=== PATIENT | male | born 1955 | race Caucasian/White ===

== ENCOUNTER → 2017-10-16 | Outpatient (CLI) | payer BC | END | disposition home or self-care (01) | LOC: LABPAT 12:54 | PROVIDERS: ATTEND Orthopaedic Surgery | DX: Z01.812 Encounter for preprocedural laboratory examination (principal) | CPT/HCPCS: 87070 ==

== ENCOUNTER → 2017-10-19 | Outpatient (CLI) | payer BC ==
[2017-10-19 11:35] LABS: HCT 49.3 % (39.0-53.0); HGB 17.2 gm/dL (13.0-17.5); MCH 32.7 pg (25.0-35.0); MCHC 34.9 g/dL (31.0-37.0); MCV 93.6 fL (80.0-100.0); Mean Platelet Volume 7.7; Platelet Count 268 k/uL (150-450); RBC 5.27 m/uL (4.30-5.90); RDW 13.2 % (11.5-15.5)
[2017-10-19 11:38] LABS: Partial Thromboplastin Time 24.7 sec (22.0-30.0); Prothrombin Time 9.8 sec (9.0-12.0)
[2017-10-19 11:39] LABS: ALT 30 U/L (21-72); AST 25 U/L (17-59); Albumin 4.6 g/dL (3.5-5.0); Alkaline Phosphatase 85 U/L (38-126); Anion Gap 8 mmol/L; Blood Urea Nitrogen 11 mg/dL (9-20); Calcium 9.7 mg/dL (8.4-10.2); Carbon Dioxide 24 mmol/L (22-30); Chloride 107 mmol/L (98-107); Glucose 89 mg/dL (74-99); Potassium 4.7 mmol/L (3.5-5.1); Sodium 139 mmol/L (137-145); Total Bilirubin 0.9 mg/dL (0.2-1.3); Total Protein 7.4 g/dL (6.3-8.2)
[2017-10-19 11:40] LABS: Appearance,Urine Clear (Clear); Bilirubin,Urine Negative (Negative); Blood,Urine Negative (Negative); Color,Urine Light Yellow; Glucose,Urine (UA) Negative (Negative); Ketones,Urine Negative (Negative); Leukocyte Esterase,Urine Negative (Negative); Nitrite,Urine Negative (Negative); Protein,Urine Negative (Negative); Specific Gravity,Urine 1.005 (1.001-1.035); Urobilinogen,Urine <2.0 mg/dL (<2.0)
== END | disposition home or self-care (01) ==
LOC: LABPAT 10:53
PROVIDERS: ATTEND Orthopaedic Surgery
DX: Z01.818 Encounter for other preprocedural examination (principal); Z01.812 Encounter for preprocedural laboratory examination
CPT/HCPCS: 36415; 80053; 81003; 85027; 85610; 85730; 93005

== ENCOUNTER 2017-10-30 07:54 | Inpatient (IN) | payer BC ==
[2017-10-19 09:33] VITALS: BMI 27.8
[~2017-10-30 07:54] MED LIST: ACETAMINOPHEN TAB 500 MG TAB PO ONE; DEXAMETHASONE SOD PHOSPHATE 10 MG/ML 1 ML VIAL IV ONE; HYDROmorphone 0.5 MG/0.5 ML SYRINGE IVP PRN; LACTATED RINGERS 1,000 ML IV SCH; LIDOCAINE 1% 20 ML VIAL (10MG/ML) FOR IV START INTRADERMA PRN; MELOXICAM 7.5 MG TAB PO ONE; MIDAZOLAM 2 MG/2 ML VIAL IV PRN; ONDANSETRON 4 MG/2 ML VIAL IVP ONE; SCOPOLAMINE 1.5MG/72HR PATCH TRANSDERM ONE; TRANEXAMIC ACID 1,000 MG in SODIUM CHLORIDE 0.9% 50 ML IVPB ONE; ceFAZolin IN SWFI 2 GM/20 ML SYRINGE IVP ONE
[2017-10-30] MEDS ORDERED: MAGNESIUM HYDROXIDE 2,400 MG/10 ML CUP PO PRN (12:23)
[2017-10-30] MEDS ORDERED: DIAZEPAM 5 MG TAB PO PRN ×2 (12:23)
[2017-10-30] MEDS ORDERED: hydrOXYzine PAMOATE 25 MG CAP PO PRN (12:23)
[2017-10-30] MEDS ORDERED: HYDROcodone/APAP 5-325MG 1 EACH TAB PO PRN (12:23)
[2017-10-30] MEDS ORDERED: ONDANSETRON 4 MG/2 ML VIAL IVP PRN (12:23)
[2017-10-30] MEDS ORDERED: HYDROmorphone 1 MG/ML 1 ML SYRINGE IVP PRN ×3 (12:23)
[2017-10-30] MEDS ORDERED: NALOXONE 0.4 MG/ML 1 ML VIAL IV PRN (12:23)
[2017-10-30] MEDS: ROPIVACAINE 246.25 MG, EPINEPHrine 0.5 MG, KETOROLAC 30 MG, cloNIDine HCL/PF 80 MCG, WA... MISCELLANE ONE ×10 (12:24→13:03)
[2017-10-30] MEDS ORDERED: PROPOFOL 10 MG/ML 20 ML VIAL IV ONE (12:25)
[2017-10-30] MEDS ORDERED: HEPARIN SODIUM,PORCINE 10,000 UNIT/ML 1 ML VIAL ONE (12:25)
[2017-10-30] MEDS ORDERED: TRANEXAMIC ACID 1,000 MG/10 ML VIAL ONE (12:25)
[2017-10-30] MEDS ORDERED: SODIUM CHLORIDE 0.9% IRRIG 1,000 ML BTL IRRIGATION ONE (12:25)
[2017-10-30] MEDS ORDERED: fentaNYL (PF) 50 MCG/ML 2 ML AMP ONE (12:25)
[2017-10-30] MEDS ORDERED: SODIUM CHLORIDE 0.9% 100 ML BAG ONE (12:25)
[2017-10-30] MEDS ORDERED: MIDAZOLAM 2 MG/2 ML VIAL ONE (12:25)
[2017-10-30] MEDS ORDERED: ceFAZolin 3,000 MG in SODIUM CHLORIDE 0.9% IRRIGATIO 3,000 ML IRRIGATION ONE (13:00)
[2017-10-30] MEDS ORDERED: LACTATED RINGERS 1,000 ML IV ONE (13:10)
--- NOTE | 2017-10-30 14:24 | FL ---
Fluoroscopy HISTORY: Hip arthroplasty 59 seconds fluoroscopy time supplied to the referring clinician. 3 intraoperative C-arm images docum ent the procedure. See dictated report from orthopedic surgery.
--- NOTE | 2017-10-30 14:32 | XR ---
EXAMINATION TYPE: XR Hip Limited RT DATE OF EXAM: 10/30/2017 CLINICAL HISTORY: Right hip replacement. Fluoroscopic documentation. TECHNIQUE: Fluoroscopy. COMPARISON: None. FINDINGS/IMPRESSION: Fluoroscopic guidance was provided during procedure performed by Dr. Hernandez. A total of 59 seconds of fluoroscopic time was utilized during the procedure and 3 spot images was a cquired.
--- NOTE | 2017-10-30 14:34 | P.OP ---
Date of Procedure: 10/30/17 Preoperative Diagnosis: Severe osteoarthritis right hip Postoperative Diagnosis: Severe osteoarthritis right hip Procedure(s) Performed: Right total hip arthroplasty with direct anterior approach Implants: Galloway and nephew Polarstem size 6 standard Galloway & Nephew R3, 3 hole acetabular shell, 56 mm Galloway & Nephew reflection 6.5 mm cancellus screw, 25 mm 2 Galloway & Nephew R3, XLPE 20 acetabular liner Galloway & Nephew Oxinium femoral head 36 m, +4 All components were press-fit. The articulation is Oxinium on polyethylene. Anesthesia: spinal Surgeon: Marek Hernandez Electronic Data Processing Auditor #1: Mary Monroe Estimated Blood Loss (ml): 100 Pathology: other (Femoral head) Condition: stable Disposition: PACU Indications for Procedure: After failure of conservative treatment we discussed the surgical and nonsurgical treatment options at length. Patient wishes to proceed with a total hip arthroplasty with a direct anterior approach. Complications specific to this procedure were discussed at length, including but not limited to infection, leg length discrepancy, dislocation, and nerve injury. Patient is aware of all these complications and informed consent was obtained Operative Findings: The operative findings are consistent with severe osteoarthritis of the right hip Description of Procedure: Patient was seen and evaluated in the preoperative area, consent was reviewed, and the surgical site was marked with a skin marker. Patient was then brought to the operating room and given prophylactic antibiotics intravenously. 1 g of Tranexamic acid was also given. A spinal anesthetic was administered by the anesthesia department. The patient was then placed on the [place] table with the bony prominences well-padded. The hip area was then prepped and draped in usual sterile fashion. A universal timeout was then performed, which confirmed the patient's name, surgical site, ALLERGIES, and procedure being performed. Next the incision site was located at 1 cm distal and 1 cm lateral to the anterior superior iliac spine. The skin and subcutaneous tissues were sharply incised. Incision was carefully dissected down to the fascia overlying the tensor fascia juan carlos muscle. This fascia was then incised in line with the incision. Next, using blunt finger dissection, the tensor fascia juan carlos muscle was dissected off its investing fascia. The muscle was then carefully retracted laterally with a cobra retractor over the lateral neck of the femur. Next, the circumflex vessels were identified and cauterized using the AquaMantis device. The anterior hip capsule was then exposed. The capsule was then opened and an inverted T fashion. Cobra retractors were then placed intracapsularly. The proximal femur was then visualized. The femoral neck was then osteotomized appropriate level above the lesser trochanter. Small amount of traction was placed with the [place] table. A small wedge of bone was then removed from the remaining femoral head. Next, using a corkscrew femoral head was easily removed from the acetabulum. On gross visual inspection, the femoral head had complete loss of articular cartilage in multiple periarticular osteophytes. Attention was then turned to the acetabulum. the acetabulum was exposed and any remaining labrum was excised. Sequential reaming of the acetabulum was performed using fluoroscopic guidance. When the appropriate size was reached, a trial was then placed. The position and fit of the trial was checked with fluoroscopy. The trial was then removed. Then, using fluoroscopic guidance, the final implant was impacted at 20 of anteversion and 40 of abduction, and fully seated in the acetabulum. 2 screws were then placed in the acetabulum. Again fluoroscopy was used to check position of the screws. Next, the liner was then impacted, with a 20 elevated liner located in the anterior superior quadrant. Component locking was confirmed. Attention was then directed to the femur. With the aid of the [place] table, the femur was externally rotated to approximately 130, extended, and abducted under the opposite leg. A side hook was then placed under the proximal femur, and the side hook elevator was used to elevate the proximal femur. Retractors were then placed. A capsular release was performed, as well as a release of the conjoined tendon, which afforded excellent visualization of the proximal femur. Next, a box osteotome was used to lateralize the proximal femur. A basket hand weaver was then used to locate the femoral canal. Sequential broaching was then performed with appropriate size which afforded excellent fixation in the proximal femur. A trial was then placed with appropriate head and neck, and the hip was gently reduced with the aid of the [place] table. Fluoroscopy was then used to check position of the components, as well as to ensure equal leg lengths. The hip was then gently dislocated and the trials were then removed. Final implants were then impacted and the hip was again reduced. Final fluoroscopic x-rays confirmed that the components were in anatomic position, as well as equal leg lengths. The hip was also taken through range of motion, and found to be stable. The hip was then copiously irrigated with antibiotic solution with pulsatile lavage. The hip was then irrigated with Irrisept solution. The soft tissues were then injected with a ropivacaine solution, which consisted of 246.25 mg of ropivacaine, 0.5 mg of epinephrine, 30 mg of Toradol, 80 g of clonidine, and 48.45 mL of sterile water, for a total of 100 mL of fluid injected. A second dose of 1 g of Tranexamic acid was also given. the fascia was then closed with 2-0 strata fix suture. The subcutaneous tissue was closed with 3-0 Vicryl. The subcuticular tissue was closed with 3-0 strata fix suture. The skin was then closed with Dermabond glue and a sterile silver dressing. The patient was then transferred to the recovery room in stable condition. The funeral director's assistant COSTA Melo was required due to the complexity of surgery, and the need for skilled surgical instrument repair specialist for positioning, draping, exposure, retraction, and closure of the wound.
[2017-10-30] MEDS: SODIUM CHLORIDE 0.9% 1,000 ML IV SCH (15:24)
--- NOTE | 2017-10-30 17:55 | XR ---
PROCEDURE: XR Hip Limited RT, one view DATE AND TIME: 10/30/2017 5:44 PM REFERRING PHYSICIAN: Mary Monroe CLINICAL INDICATION: PHH, Status post hip surgery, assess surgical alignment TECHNIQUE: Portable AP view COMPARISON: None FINDINGS: Right hip prosthesis appears anatomic in its positioning and alignment. No acute skeletal findings. Soft tissue emphysema noted, but no unexpected postoperative findings. IMPRESSION: NO ACUTE PROCESS.
[2017-10-30] MEDS: HYDROcodone/APAP 5-325MG 1 EACH TAB PO PRN (19:29)
[2017-10-30] MEDS: ceFAZolin IN SWFI 2 GM/20 ML SYRINGE IVP SCH (20:50)
[2017-10-30] MEDS: ASPIRIN 325 MG TAB PO SCH (20:50)
[2017-10-30] MEDS ORDERED: FAMOTIDINE 20 MG TAB PO SCH (21:00)
[2017-10-30] MEDS ORDERED: SENNOSIDES-DOCUSATE SODIUM 1 EACH TAB PO SCH (21:00)
[2017-10-30] MEDS ORDERED: NON-FORMULARY DRUG (Ranitidine Hcl [Zantac] 75 MG) PO SCH (21:30)
[2017-10-30] MEDS: NICOTINE 21MG/24HR PATCH TRANSDERM SCH (23:29)
[2017-10-31] MEDS: HYDROcodone/APAP 5-325MG 1 EACH TAB PO PRN (01:24)
--- NOTE | 2017-10-31 02:38 | CONS ---
CONSULTATION DATE OF CONSULTATION: 10/30/2017. REASON FOR CONSULTATION: Medical management, requested by Dr. Hernandez. CONSULTATION: This is a 62-year-old patient of Dr. Royal'jorge who has undergone a right total hip arthroplasty. Postprocedure pain is controlled. No nausea or vomiting. Limited range of motion. Prior to surgery patient's activity was limited because of the hip and he was having a significant amount of pain. The patient also has got reflux symptoms with GERD and also has got arthritis of the left hip. Did tolerate some supper right now today. No chest pain or shortness of breath. The patient's pain was localized to right hip, did not radiate anywhere. REVIEW OF SYSTEMS: CONSTITUTIONAL: None. HEENT: None. RESPIRATORY: None. CARDIOVASCULAR: None. GASTROINTESTINAL: Heartburn. GENITOURINARY: None. MUSCULOSKELETAL: Pain in multiple joints. DERMATOLOGIC: None. HEMATOLOGIC: None. LYMPHATIC: None. PSYCHIATRY: None. NEUROLOGIC: None. PAST MEDICAL HISTORY: Osteoarthritis, GERD, kidney stones. PAST SURGICAL HISTORY: Surgery for kidney stone, bilateral cataract surgery. SOCIAL HISTORY: The patient smokes about about 3/4 pack per day for close to 50 years. 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 . FAMILY HISTORY: Throat cancer. HOME MEDICATIONS: 1. Zantac 75 mg at bedtime. 2. Multivitamin 1 tablet p.o. daily. 3. Celebrex 200 mg p.o. b.i.d. p.r.n. ALLERGIES: IBUPROFEN. PHYSICAL EXAMINATION: Temperature 97.3, pulse 54, respirations 16, blood pressure 107/68, pulse 97% on room air. GENERAL APPEARANCE: Average built, propped up, awake. EYES: Pupils equal. Conjunctivae normal. HEENT: External nose and ears normal. Oral cavity normal. NECK: JVD not raised. Mass not palpable. Respiratory effort normal. LUNGS: Fair air entry. CARDIOVASCULAR: 1st and 2nd sounds normal. No edema. ABDOMEN: Soft, nontender. Liver and spleen not palpable. LYMPHATIC: No lymph nodes palpable in the neck or axillae. PSYCHIATRY: Alert and oriented x3. Mood and affect normal. NEUROLOGIC: Pupils equal. Cranial nerves grossly intact. Power and sensation grossly intact. EXTREMITIES: Dressing over the right hip. INVESTIGATIONS: Lab work from October 19 shows a white count of 7, hemoglobin 17.2, potassium 4.7, BUN 11, creatinine 0.8. ASSESSMENT: 1. Right total hip arthroplasty. 2. Primary osteoarthritis of the hips. 3. Gastroesophageal reflux disease. 4. Chronic nicotine dependence. Patient is a cigarette smoker. PLAN: DVT prophylaxis, aspirin on board. Pain control is in place. Home medications are resumed. The patient is advised against smoking. We will give the patient a nicotine patch. Patient also getting IV fluids. Thank you, Dr. Hernandez. KINA / ELLE: [id number] /
[2017-10-31] MEDS: ceFAZolin IN SWFI 2 GM/20 ML SYRINGE IVP SCH (03:44)
[2017-10-31] MEDS: SODIUM CHLORIDE 0.9% 1,000 ML IV SCH (03:46)
[2017-10-31 07:59] LABS: Basophils % (A) 0 %; Eosinophils % (A) 0 %; HCT 39.5 % (39.0-53.0); Lymphocytes # (A) 1.3 k/uL (1.0-4.8); Lymphocytes % (A) 10 %; MCH 30.8 pg (25.0-35.0); MCHC 32.9 g/dL (31.0-37.0); MCV 93.7 fL (80.0-100.0); Mean Platelet Volume 7.9; Monocytes % (A) 7 %; Neutrophils # (A) 11.1 k/uL (1.3-7.7); Neutrophils % (A) 81 %; Platelet Count 218 k/uL (150-450); RBC 4.22 m/uL (4.30-5.90); RDW 12.9 % (11.5-15.5); WBC 13.8 k/uL (3.8-10.6)
[2017-10-31] MEDS: ASPIRIN 325 MG TAB PO SCH (08:43)
[2017-10-31] MEDS: NICOTINE 21MG/24HR PATCH TRANSDERM SCH (10:49)
--- NOTE | 2017-10-31 14:04 | P.DS ---
Providers Date of admission: 10/30/17 10:31 Expected date of discharge: 10/31/17 Attending physician: Marek Hernandez Consults: 10/30/17 12:23 Consult Physician Routine Consulting Provider: Lalo Royal Consult Reason/Comments: medical management Do you want consulting provider notified?: Yes 10/30/17 15:10 Consult Physician Routine Consulting Provider: Angel Luz Consult Reason/Comments: medical management Do you want consulting provider notified?: Yes Primary care physician: Greg Royal - Discharge Diagnosis(es) (1) Primary osteoarthritis of right hip Current Visit: Yes Status: Acute (2) S/P total hip arthroplasty Current Visit: Yes Status: Acute Hospital Course: This is a 62-year-old male with known history of degenerative arthritis of the right hip. The patient presents for evaluation. After discussion and consideration patient elects to proceed with total hip arthroplasty. The patient is seen preoperatively by Dr. Hernandez and medically cleared for surgery by their primary care physician. Patient is admitted to [facility] on 10/31/2017 for total hip arthroplasty. The procedures performed without complication or sequelae. The patient is doing well postoperatively. Labs and vital signs are stable on day of discharge. On day of discharge patient's hip incision is healing well. There is minimal erythema. There is no drainage noted at this time. There is minimal soft tissue swelling to the hip and thigh. Patient has full foot and ankle motion without difficulty or pain. Neurovascular status to the right lower extremity is intact. Patient is discharged home in good condition. Please see med rec for accurate list of home medications. Plan - Discharge Summary Discharge Rx Participant: Yes New Discharge Prescriptions: New Nicotine 21Mg/24Hr Patch [Habitrol] 1 patch TRANSDERM DAILY #30 patch Aspirin 325 mg PO BID #60 tab HYDROcodone/APAP 5-325MG [Reserve 5-325] 1 - 2 tab PO Q4-6H PRN #84 tab PRN Reason: Pain Sennosides [Senokot] 1 tab PO BID #60 tablet Continue Ranitidine HCl [Zantac] 75 mg PO HS Multivitamins, Thera [Multivitamin (formulary)] 1 tab PO DAILY No Action Celecoxib [CeleBREX] 200 mg PO BID PRN PRN Reason: Pain Discharge Medication List Celecoxib [CeleBREX] 200 mg PO BID PRN 10/19/17 [History] Multivitamins, Thera [Multivitamin (formulary)] 1 tab PO DAILY 10/19/17 [History ] Ranitidine HCl [Zantac] 75 mg PO HS 10/19/17 [History] Aspirin 325 mg PO BID #60 tab 10/31/17 [Rx] HYDROcodone/APAP 5-325MG [Reserve 5-325] 1 - 2 tab PO Q4-6H PRN #84 tab 10/31/17 [ Rx] Nicotine 21Mg/24Hr Patch [Habitrol] 1 patch TRANSDERM DAILY #30 patch 10/31/17 [ Rx] Sennosides [Senokot] 1 tab PO BID #60 tablet 10/31/17 [Rx] Follow up Appointment(s)/Referral(s): Lalo Royal MD [Primary Care Provider] - 11/17/17 11:40 am [facility], [NON-STAFF] - Marek Hernandez DO [Doctor of Osteopathic Medicine] - 11/10/17 1:30 pm (With Abhinav) Activity/Diet/Wound Care/Special Instructions: [facility] - walker - [phone] - will deliver to bedside before discharge. Weightbearing as tolerated with walker Leave dressing intact. Dressing may be removed by home care nurse in 10 days. May shower with dressing on. Follow-up with [facility] in 2 weeks, please call with any questions or concerns [phone] Discharge Disposition: HOME WITH HOME HEALTH SERVICES
[2017-10-31 15:01] VITALS: BP 117/70; PULSE 63; RESP 18; TEMP 98.4
--- NOTE | 2017-11-02 05:13 | PN ---
PROGRESS NOTE DATE OF SERVICE: 10/31/2017 PRESENTING COMPLAINT: Right hip surgery. INTERVAL HISTORY: Patient was seen by me yesterday on 10/31/2017. Pain is better controlled. No nausea or vomiting. Tolerating a diet. Did well with therapy. Overall feeling better. REVIEW OF SYSTEMS: Review of systems done for constitutional, cardiovascular, GI, pulmonary; relevant findings as above. MEDICATIONS: Current medications are reviewed. PHYSICAL EXAMINATION: On examination, temperature 98.5, pulse 62, respirations 16, blood pressure 115/58, pulse ox 96% on room air. GENERAL APPEARANCE: Sitting up, comfortable. EYES: Pupils equal. Conjunctivae normal. HENT: External appearance of nose and ears normal. Oral cavity normal. NECK: JVD not raised. Mass not palpable. RESPIRATORY: Effort . Lungs are clear. CARDIOVASCULAR: First and second sounds normal. No edema. ABDOMEN: Soft, nontender. Liver and spleen not palpable. PSYCHIATRY: Alert and oriented x3. Mood and affect normal. INVESTIGATIONS: Hemoglobin 13. ASSESSMENT: 1. Right total hip arthroplasty. 2. Primary osteoarthritis of the hips. 3. Gastroesophageal reflux disease. 4. Chronic nicotine dependence. Patient is a cigarette smoker. 5. Leukocytosis likely reactive from surgery. No clinical evidence of infection. Wound is healing well per Orthopedics. PLAN: Care was discussed with the patient. Continue medication and treatment plan. Thank you. MMODL / IJN: [id number] /
== END 2017-10-31 16:14 | disposition home health service (06) | DRG 470 ==
LOC: 2ORMAIN 10:31 → 3SUR 14:32
PROVIDERS: ADMIT Orthopaedic Surgery; ATTEND Orthopaedic Surgery
PROC: 0SR906A Replacement of Right Hip Joint with Oxidized Zirconium on Polyethylene Synthetic Substitute, Uncemented, Open Approach (ICD-10-PCS; principal; 2017-10-30 12:30)
DX: M16.11 Unilateral primary osteoarthritis, right hip (principal); F17.210 Nicotine dependence, cigarettes, uncomplicated; K21.9 Gastro-esophageal reflux disease without esophagitis; Z80.8 Family history of malignant neoplasm of other organs or systems; Z87.442 Personal history of urinary calculi; Z88.6 Allergy status to analgesic agent; Z79.899 Other long term (current) drug therapy; Z98.42 Cataract extraction status, left eye; Z98.41 Cataract extraction status, right eye
CPT/HCPCS: 73501; 85025; 86850; 86891; 86900; 86901; 88300

== ENCOUNTER → 2018-01-01 | Outpatient (CLI) | payer BC | LOC: LABPAT 10:24 | PROVIDERS: ATTEND Orthopaedic Surgery | DX: Z01.812 Encounter for preprocedural laboratory examination (principal) | CPT/HCPCS: 87070 ==

== ENCOUNTER → 2018-01-04 | Outpatient (CLI) | payer BC ==
[2018-01-04 10:14] LABS: HCT 49.5 % (39.0-53.0); HGB 16.6 gm/dL (13.0-17.5); MCHC 33.5 g/dL (31.0-37.0); MCV 95.5 fL (80.0-100.0); Mean Platelet Volume 8.2; Platelet Count 296 k/uL (150-450); RBC 5.18 m/uL (4.30-5.90); RDW 13.1 % (11.5-15.5); WBC 6.8 k/uL (3.8-10.6)
[2018-01-04 10:23] LABS: Appearance,Urine Clear (Clear); Bilirubin,Urine Negative (Negative); Blood,Urine Negative (Negative); Color,Urine Yellow; Glucose,Urine (UA) Negative (Negative); Ketones,Urine Negative (Negative); Leukocyte Esterase,Urine Negative (Negative); Nitrite,Urine Negative (Negative); Protein,Urine Negative (Negative); Specific Gravity,Urine 1.014 (1.001-1.035); Urobilinogen,Urine <2.0 mg/dL (<2.0)
[2018-01-04 10:24] LABS: Prothrombin Time 9.6 sec (9.0-12.0)
[2018-01-04 10:32] LABS: ALT 26 U/L (21-72); AST 23 U/L (17-59); Albumin 4.2 g/dL (3.5-5.0); Alkaline Phosphatase 89 U/L (38-126); Anion Gap 11 mmol/L; Blood Urea Nitrogen 11 mg/dL (9-20); Calcium 9.5 mg/dL (8.4-10.2); Carbon Dioxide 23 mmol/L (22-30); Chloride 109 mmol/L (98-107); Glucose 100 mg/dL (74-99); Potassium 4.7 mmol/L (3.5-5.1); Sodium 143 mmol/L (137-145); Total Bilirubin 0.8 mg/dL (0.2-1.3); Total Protein 7.1 g/dL (6.3-8.2)
== END | disposition home or self-care (01) ==
LOC: LABPAT 08:54
PROVIDERS: ATTEND Orthopaedic Surgery
DX: Z01.812 Encounter for preprocedural laboratory examination (principal)
CPT/HCPCS: 36415; 80053; 81003; 85027; 85610; 85730

== ENCOUNTER 2018-01-15 05:36 | Inpatient (IN) | payer BC ==
[2018-01-04 14:21] VITALS: BMI 27.8
[~2018-01-15 05:36] MED LIST changes: -HYDROmorphone 0.5 MG/0.5 ML SYRINGE IVP PRN; -SCOPOLAMINE 1.5MG/72HR PATCH TRANSDERM ONE; +fentaNYL (PF) 50 MCG/ML 2 ML AMP IV PRN
[2018-01-15] MEDS ORDERED: ROPIVACAINE 246.25 MG, EPINEPHrine 0.5 MG, KETOROLAC 30 MG, cloNIDine HCL/PF 80 MCG, WA... MISCELLANE ONE ×10 (06:00)
[2018-01-15] MEDS ORDERED: NALOXONE 0.4 MG/ML 1 ML VIAL IV PRN (06:58)
[2018-01-15] MEDS ORDERED: HYDROmorphone 1 MG/ML 1 ML SYRINGE IVP PRN ×3 (06:58)
[2018-01-15] MEDS ORDERED: DIAZEPAM 5 MG TAB PO PRN (06:58)
[2018-01-15] MEDS ORDERED: hydrOXYzine PAMOATE 25 MG CAP PO PRN (06:58)
[2018-01-15] MEDS ORDERED: MAGNESIUM HYDROXIDE 2,400 MG/10 ML CUP PO PRN (06:58)
[2018-01-15] MEDS ORDERED: ONDANSETRON 4 MG/2 ML VIAL IVP PRN (06:58)
[2018-01-15] MEDS ORDERED: HYDROcodone/APAP 5-325MG 1 EACH TAB PO PRN (06:58)
[2018-01-15] MEDS ORDERED: HEPARIN SODIUM,PORCINE 10,000 UNIT/ML 1 ML VIAL ONE (07:00)
[2018-01-15] MEDS ORDERED: SODIUM CHLORIDE 0.9% IRRIG 1,000 ML BTL IRRIGATION ONE (07:00)
[2018-01-15] MEDS ORDERED: SODIUM CHLORIDE 0.9% 100 ML BAG ONE (07:00)
[2018-01-15] MEDS ORDERED: fentaNYL (PF) 50 MCG/ML 2 ML AMP ONE (07:00)
[2018-01-15] MEDS ORDERED: ceFAZolin 3,000 MG in SODIUM CHLORIDE 0.9% IRRIGATIO 3,000 ML IRRIGATION ONE (07:00)
[2018-01-15] MEDS ORDERED: PHENYLEPHRINE-0.9% NACL SYG 1 MG/10 ML SYRINGE ONE (07:00)
[2018-01-15] MEDS ORDERED: TRANEXAMIC ACID 1,000 MG/10 ML VIAL ONE (07:00)
[2018-01-15] MEDS ORDERED: MIDAZOLAM 2 MG/2 ML VIAL ONE (07:00)
[2018-01-15] MEDS ORDERED: PROPOFOL 10 MG/ML 20 ML VIAL IV ONE (07:00)
--- NOTE | 2018-01-15 08:39 | P.OP ---
Date of Procedure: 01/15/18 Preoperative Diagnosis: Severe osteoarthritis left hip Postoperative Diagnosis: Severe osteoarthritis left hip Procedure(s) Performed: Left total hip arthroplasty with a direct anterior approach Implants: Galloway and nephew Polarstem size 7 lateral Galloway & Nephew R3, 3 hole acetabular shell, 56 mm Galloway & Nephew reflection 6.5 mm cancellus screw, 20 mm 2, 25 mm Galloway & Nephew R3, XLPE 20 acetabular liner Galloway & Nephew Oxinium femoral head 36 m, +8 All components were press-fit. The articulation is Oxinium on polyethylene. Anesthesia: spinal Surgeon: Marek Hernandez Curing Pickling Packer #1: Mary Monroe Estimated Blood Loss (ml): 100 Pathology: other (Femoral head) Condition: stable Disposition: PACU Indications for Procedure: After failure of conservative treatment we discussed the surgical and nonsurgical treatment options at length. Patient wishes to proceed with a total hip arthroplasty with a direct anterior approach. Complications specific to this procedure were discussed at length, including but not limited to infection, leg length discrepancy, dislocation, and nerve injury. Patient is aware of all these complications and informed consent was obtained Operative Findings: The operative findings are consistent with severe osteoarthritis of the left hip Description of Procedure: Patient was seen and evaluated in the preoperative area, consent was reviewed, and the surgical site was marked with a skin marker. Patient was then brought to the operating room and given prophylactic antibiotics intravenously. 1 g of Tranexamic acid was also given. A spinal anesthetic was administered by the anesthesia department. The patient was then placed on the [place] table with the bony prominences well-padded. The hip area was then prepped and draped in usual sterile fashion. A universal timeout was then performed, which confirmed the patient's name, surgical site, ALLERGIES, and procedure being performed. Next the incision site was located at 1 cm distal and 1 cm lateral to the anterior superior iliac spine. The skin and subcutaneous tissues were sharply incised. Incision was carefully dissected down to the fascia overlying the tensor fascia juan carlos muscle. This fascia was then incised in line with the incision. Next, using blunt finger dissection, the tensor fascia juan carlos muscle was dissected off its investing fascia. The muscle was then carefully retracted laterally with a cobra retractor over the lateral neck of the femur. Next, the circumflex vessels were identified and cauterized using the AquaMantis device. The anterior hip capsule was then exposed. The capsule was then opened and an inverted T fashion. Cobra retractors were then placed intracapsularly. The proximal femur was then visualized. The femoral neck was then osteotomized appropriate level above the lesser trochanter. Small amount of traction was placed with the [place] table. A small wedge of bone was then removed from the remaining femoral head. Next, using a corkscrew femoral head was easily removed from the acetabulum. On gross visual inspection, the femoral head had complete loss of articular cartilage in multiple periarticular osteophytes. Attention was then turned to the acetabulum. the acetabulum was exposed and any remaining labrum was excised. Sequential reaming of the acetabulum was performed using fluoroscopic guidance. When the appropriate size was reached, a trial was then placed. The position and fit of the trial was checked with fluoroscopy. The trial was then removed. Then, using fluoroscopic guidance, the final implant was impacted at 20 of anteversion and 40 of abduction, and fully seated in the acetabulum. 3 screws were then placed in the acetabulum. Again fluoroscopy was used to check position of the screws. Next, the liner was then impacted, with a 20 elevated liner located in the anterior superior quadrant. Component locking was confirmed. Attention was then directed to the femur. With the aid of the [place] table, the femur was externally rotated to approximately 130, extended, and abducted under the opposite leg. A side hook was then placed under the proximal femur, and the side hook elevator was used to elevate the proximal femur. Retractors were then placed. A capsular release was performed, as well as a release of the conjoined tendon, which afforded excellent visualization of the proximal femur. Next, a box osteotome was used to lateralize the proximal femur. A hand therapist was then used to locate the femoral canal. Sequential broaching was then performed with appropriate size which afforded excellent fixation in the proximal femur. A trial was then placed with appropriate head and neck, and the hip was gently reduced with the aid of the [place] table. Fluoroscopy was then used to check position of the components, as well as to ensure equal leg lengths. The hip was then gently dislocated and the trials were then removed. Final implants were then impacted and the hip was again reduced. Final fluoroscopic x-rays confirmed that the components were in anatomic position, as well as equal leg lengths. The hip was also taken through range of motion, and found to be stable. The hip was then copiously irrigated with antibiotic solution with pulsatile lavage. The hip was then irrigated with Irrisept solution. The soft tissues were then injected with a ropivacaine solution, which consisted of 246.25 mg of ropivacaine, 0.5 mg of epinephrine, 30 mg of Toradol, 80 g of clonidine, and 48.45 mL of sterile water, for a total of 100 mL of fluid injected. A second dose of 1 g of Tranexamic acid was also given. the fascia was then closed with 2-0 strata fix suture. The subcutaneous tissue was closed with 3-0 Vicryl. The subcuticular tissue was closed with 3-0 strata fix suture. The skin was then closed with Dermabond glue and a sterile silver dressing. The patient was then transferred to the recovery room in stable condition. The acute care assistant COSTA Melo was required due to the complexity of surgery, and the need for skilled academic affairs assistant for positioning, draping, exposure, retraction, and closure of the wound.
--- NOTE | 2018-01-15 09:04 | XR ---
EXAMINATION TYPE: XR Hip Limited LT, FL guidance operating room DATE OF EXAM: 01/15/2018 CLINICAL HISTORY: Left hip pain and left arthroplasty, fluoroscopic documentation TECHNIQUE: Fluoroscopy. COMPARISON: None. FINDINGS: Fluoroscopic guidance was provided during procedure performed by Dr. Hernandez. A total of 39 seconds of fluoroscopic time was utilized during the procedure and 2 spot images was acquired lef t total hip arthroplasty.
--- NOTE | 2018-01-15 10:06 | XR ---
EXAMINATION TYPE: XR Hip Limited LT DATE OF EXAM: 01/15/2018 COMPARISON: NONE HISTORY: Postop TECHNIQUE: One view submitted. FINDINGS: There is a prosthetic hip in near anatomic alignment. There is soft tissue edema and emphysema. IMPRESSION: 1. Postoperative change. Appears in near-anatomic alignment.
[2018-01-15] MEDS: SODIUM CHLORIDE 0.9% 1,000 ML IV SCH ×2 (14:04→14:17)
[2018-01-15 14:43] VITALS: RESP 16
[2018-01-15] MEDS: ceFAZolin IN SWFI 2 GM/20 ML SYRINGE IVP SCH (17:18)
[2018-01-15] MEDS: HYDROcodone/APAP 5-325MG 1 EACH TAB PO PRN ×2 (17:20→22:21)
[2018-01-15] MEDS ORDERED: FAMOTIDINE 20 MG TAB PO SCH (21:00)
[2018-01-15] MEDS ORDERED: SENNOSIDES-DOCUSATE SODIUM 1 EACH TAB PO SCH (21:00)
[2018-01-15] MEDS: ASPIRIN 325 MG TAB PO SCH (22:21)
[2018-01-16] MEDS: ceFAZolin IN SWFI 2 GM/20 ML SYRINGE IVP SCH (02:36)
[2018-01-16 07:53] LABS: Basophils % (A) 0 %; Eosinophils # (A) 0.1 k/uL (0-0.7); Eosinophils % (A) 1 %; HCT 40.2 % (39.0-53.0); Lymphocytes # (A) 1.5 k/uL (1.0-4.8); Lymphocytes % (A) 14 %; MCH 31.9 pg (25.0-35.0); MCHC 33.2 g/dL (31.0-37.0); MCV 96.3 fL (80.0-100.0); Mean Platelet Volume 8.5; Monocytes % (A) 10 %; Neutrophils # (A) 7.8 k/uL (1.3-7.7); Neutrophils % (A) 73 %; Platelet Count 232 k/uL (150-450); RBC 4.17 m/uL (4.30-5.90); RDW 13.2 % (11.5-15.5); WBC 10.7 k/uL (3.8-10.6)
[2018-01-16 07:57] LABS: HGB 13.3 gm/dL (13.0-17.5)
[2018-01-16 07:59] VITALS: BP 129/75; PULSE 72; TEMP 98
[2018-01-16] MEDS: ASPIRIN 325 MG TAB PO SCH (08:06)
[2018-01-16] MEDS: HYDROcodone/APAP 5-325MG 1 EACH TAB PO PRN (08:07)
--- NOTE | 2018-01-16 08:50 | CONS ---
CONSULTATION DATE OF CONSULTATION: 01/15/2018 REASON FOR CONSULTATION: Medical management requested by Dr. Hernandez. CONSULTATION: This is a very pleasant 62-year-old patient of Dr. Royal who has undergone a left total hip arthroplasty. Chronic stable medical conditions include GERD and osteoarthritis. Patient postoperatively sitting up. Pain is controlled. No nausea, vomiting. No chest pain or shortness of breath. Prior to surgery was having trouble walking. The pain was localized to the left hip. Patient not too long ago had a right total hip arthroplasty which is doing better. REVIEW OF SYSTEMS: CONSTITUTIONAL: None. HEENT: None. CARDIOVASCULAR: None. GASTROINTESTINAL: Heartburn. GENITOURINARY: None. MUSCULOSKELETAL: Pain in the joints. DERMATOLOGICAL: None. HEMATOLOGIC: None. LYMPHATIC: None. PSYCHIATRY: None. NEUROLOGICAL: None. PAST MEDICAL HISTORY: Of osteoarthritis, GERD, kidney stones. PAST SURGICAL HISTORY: Surgery for kidney stone, bilateral cataract surgery. SOCIAL HISTORY: Patient smokes about 3/4 pack per day for close to 50 years, retired, used to work in the [employer], . FAMILY HISTORY: Of throat cancer. HOME MEDICATIONS: Zantac 75 mg q.h.s., multivitamin tablet p.o. daily, Celebrex 200 mg p.o. b.i.d. p.r.n. ALLERGIES: IBUPROFEN. PHYSICAL EXAMINATION: Temperature 97.9 pulse 72, respirations 16, blood pressure 135/79, pulse ox 95% on room air. GENERAL APPEARANCE: Average build, sitting up, comfortable. EYES: Pupils equal, conjunctivae are normal. HEENT: External appearance of nose and ears normal. Oral cavity normal. NECK: JVD not raised. Mass not palpable. RESPIRATORY: Effort normal. Lungs are clear. CARDIOVASCULAR: First and second sounds, no edema. ABDOMEN: Soft, nontender. Liver and spleen not palpable. LYMPHATIC: No lymph node palpable. PSYCHIATRY: Alert and oriented x3. Mood and affect normal. NEUROLOGICAL: Pupils equal. Cranial nerves grossly intact. Power and sensation grossly intact. MUSCULOSKELETAL: Evidence of osteoarthritis, especially in the hands. Dressing over the left hip. INVESTIGATIONS: White count 13.8, hemoglobin 13. ASSESSMENT: 1. Left total hip arthroplasty. 2. Primary osteoarthritis. 3. Gastroesophageal reflux disease. 4. Chronic nicotine dependence, patient is a cigarette smoker. 5. Leukocytosis, reactive from surgery, no evidence of infection. PLAN: Patient is on aspirin for DVT prophylaxis per Surgery. Also on IV cefazolin for antibiotic prophylaxis. Patient will be given a nicotine patch. Otherwise, patient doing well. Care was discussed with the patient and his . Thank you, Dr. Hernandez. KINA / ELLE: [phone] /
[2018-01-16] MEDS ORDERED: MELOXICAM 7.5 MG TAB PO SCH (09:00)
[2018-01-16] MEDS ORDERED: MULTIVITAMINS, THERA 1 EACH TAB PO SCH (09:00)
--- NOTE | 2018-01-16 09:35 | P.DS ---
Providers Date of admission: 01/15/18 05:36 Expected date of discharge: 01/16/18 Attending physician: Marek Hernandez Consults: 01/15/18 06:58 Consult Physician Routine Consulting Provider: Lalo Royal Consult Reason/Comments: medical management Do you want consulting provider notified?: Yes 01/15/18 14:32 Consult Physician Routine Consulting Provider: Angel Luz Consult Reason/Comments: medical mangement Do you want consulting provider notified?: Yes Primary care physician: Greg Royal - Discharge Diagnosis(es) (1) S/P total hip arthroplasty Current Visit: Yes Status: Acute (2) Primary osteoarthritis of left hip Current Visit: Yes Status: Acute Hospital Course: This is a 62-year-old male with known history of degenerative arthritis of the left hip. The patient presents for evaluation. After discussion and consideration patient elects to proceed with total hip arthroplasty. The patient is seen preoperatively by Dr. Hernandez and medically cleared for surgery by their primary care physician. Patient is admitted to [facility] on 01/15/2018 for total hip arthroplasty. The procedures performed without complication or sequelae. The patient is doing well postoperatively. Labs and vital signs are stable on day of discharge. On day of discharge patient's hip incision is healing well. There is minimal erythema. There is no drainage noted at this time. There is minimal soft tissue swelling to the hip and thigh. Patient has full foot and ankle motion without difficulty or pain. Neurovascular status to the left lower extremity is intact. Patient is discharged home in good condition. Please see med rec for accurate list of home medications. Plan - Discharge Summary Discharge Rx Participant: Yes New Discharge Prescriptions: No Action Ranitidine HCl [Zantac] 75 mg PO HS Multivitamins, Thera [Multivitamin (formulary)] 1 tab PO DAILY Celecoxib [CeleBREX] 200 mg PO BID PRN PRN Reason: Pain Discharge Medication List Celecoxib [CeleBREX] 200 mg PO BID PRN 10/19/17 [History] Multivitamins, Thera [Multivitamin (formulary)] 1 tab PO DAILY 10/19/17 [History ] Ranitidine HCl [Zantac] 75 mg PO HS 10/19/17 [History]
== END 2018-01-16 13:01 | disposition home health service (06) | DRG 470 ==
LOC: 2ORMAIN 05:36 → 4SSUR 13:55
PROVIDERS: ADMIT Orthopaedic Surgery; ATTEND Orthopaedic Surgery
PROC: 0SRB06A Replacement of Left Hip Joint with Oxidized Zirconium on Polyethylene Synthetic Substitute, Uncemented, Open Approach (ICD-10-PCS; principal; 2018-01-15 07:00)
DX: M16.12 Unilateral primary osteoarthritis, left hip (principal); D72.828 Other elevated white blood cell count; F17.210 Nicotine dependence, cigarettes, uncomplicated; K21.9 Gastro-esophageal reflux disease without esophagitis; Z80.8 Family history of malignant neoplasm of other organs or systems; Z87.442 Personal history of urinary calculi; Z96.641 Presence of right artificial hip joint; Z98.42 Cataract extraction status, left eye; Z98.41 Cataract extraction status, right eye; Z79.899 Other long term (current) drug therapy; Z88.6 Allergy status to analgesic agent; M19.042 Primary osteoarthritis, left hand; M19.041 Primary osteoarthritis, right hand
CPT/HCPCS: 36415; 73501; 85025; 86850; 86891; 86900; 86901; 88300

== ENCOUNTER 2018-01-18 13:32 | Emergency (ER) | payer BC ==
--- NOTE | 2018-01-18 14:32 | ED ---
Extremity Problem HPI <Dylon Bro - Last Filed: 01/18/18 15:37> - General Source: patient, RN notes reviewed Mode of arrival: wheelchair Limitations: no limitations <Marek Zhong - Last Filed: 01/18/18 15:48> - General Chief complaint: Extremity Problem,Nontraumatic Stated complaint: post hip surgery/left leg swelling Time Seen by Provider: 01/18/18 13:49 - History of Present Illness Initial comments: This is a 62-year-old male presents emergency Department chief complaint of left leg swelling. Patient states he had a total hip replacement on Monday by Dr. Hernandez. Patient states that he noticed swelling today and felt some tightness in his thigh. Patient denies any redness, drainage, fever or chills. Patient states that he has no history of DVT or PE. He does take 2 full dose aspirin one in the morning and 1 in the afternoon urrently. Denies any calf pain swelling. Denies any paresthesias. (Marek Zhong) - Related Data Home Medications Medication Instructions Recorded Confirmed Ranitidine HCl [Zantac] 75 mg PO HS 10/19/17 01/18/18 Sennosides [Senokot] 8.6 mg PO BID 01/18/18 01/18/18 Previous Rx's Medication Instructions Recorded Aspirin 325 mg PO BID #60 tab 01/16/18 HYDROcodone/APAP 5-325MG [[place]way 1 - 2 tab PO Q4-6H PRN #84 tab 01/16/18 5-325] Apixaban [Eliquis] 0 mg PO DIRECTED #74 tablet 01/18/18 Allergies Allergy/AdvReac Type Severity Reaction Status Date / Time ibuprofen [From Motrin] AdvReac See Comment Verified 01/18/18 14:06 Review of Systems ROS Other: All systems not noted in ROS Statement are negative. <Dylon Bro - Last Filed: 01/18/18 15:37> ROS Other: All systems not noted in ROS Statement are negative. <Marek Zhong - Last Filed: 01/18/18 15:48> ROS Statement: Those systems with pertinent positive or pertinent negative responses have been documented in the HPI. Past Medical History Past Medical History: GERD/Reflux, Osteoarthritis (OA) Additional Past Medical History / Comment(s): Hx kidney stones X1. History of Any Multi-Drug Resistant Organisms: None Reported Past Surgical History: Joint Replacement Additional Past Surgical History / Comment(s): Bilateral catarct surgery, surgery for kidney stone.left hip replacement. RT GWEN Past Anesthesia/Blood Transfusion Reactions: No Reported Reaction Past Psychological History: No Psychological Hx Reported Smoking Status: Current every day smoker Past Alcohol Use History: Daily Past Drug Use History: None Reported - Past Family History Father Family Medical History: Cancer Additional Family Medical History / Comment(s): Throat cancer <Marek Zhong - Last Filed: 01/18/18 15:48> General Exam Limitations: no limitations General appearance: alert, in no apparent distress Head exam: Present: atraumatic, normocephalic, normal inspection Respiratory exam: Present: normal lung sounds bilaterally. Absent: respiratory distress, wheezes, rales, rhonchi, stridor Cardiovascular Exam: Present: regular rate, normal rhythm, normal heart sounds. Absent: systolic murmur, diastolic murmur, rubs, gallop, clicks Extremities exam: Present: other (Left leg neurovascular intact there is no erythema no warmth that is increased from the right leg, patient has a bandage over incision on the left anterior hip region which has no surrounding erythema , there is moderate swelling to left thigh) Skin exam: Present: warm, dry, intact, normal color. Absent: rash <Marek Zhong - Last Filed: 01/18/18 15:48> Vital Signs 01/18/18 13:49 Temperature 98.1 F Pulse Rate 80 Respiratory 18 Rate Blood Pressure 132/94 O2 Sat by Pulse 97 Oximetry Medical Decision Making <Dylon Bro - Last Filed: 01/18/18 15:37> <Marek Zhong - Last Filed: 01/18/18 15:48> - Medical Decision Making Patient reevaluated and updated. Case discussed with Zoey, practitioner covering orthopedics for Dr. Hernandez who does recommend increasing anticoagulation to either Eliquis or Xarelto. (Dylon Bro) Disposition <Dylon Bro - Last Filed: 01/18/18 15:37> Is patient prescribed a controlled substance at d/c from ED?: No Time of Disposition: 15:48 <Marek Zhong - Last Filed: 01/18/18 15:48> Clinical Impression: Left leg DVT Disposition: TRANSFER TO PSYCH HOSP/UNIT Condition: Stable Instructions: Deep Vein Thrombosis (ED) Additional Instructions: Please return to the Emergency Department if symptoms worsen or any other concerns. Prescriptions: Apixaban [Eliquis] 0 mg PO DIRECTED #74 tablet Referrals: Lalo Royal MD [Primary Care Provider] - 1-2 days
--- NOTE | 2018-01-18 15:02 | US ---
EXAMINATION TYPE: US venous doppler duplex LE LT DATE OF EXAM: 01/18/2018 2:42 PM COMPARISON: NONE CLINICAL HISTORY: Pain. SIDE PERFORMED: Left TECHNIQUE: The lower extremity deep venous system is examined utilizing real time linear array sonog jeromy with graded compression, doppler sonography and color-flow sonography. VESSELS IMAGED: External Iliac Vein (EIV) Common Femoral Vein Deep Femoral Vein Greater Saphenous Vein * Femoral Vein Popliteal Vein Small Saphenous Vein * Proximal Calf Veins (* superficial vessels) Left Leg: Femoral vein mid and distal shows thready flow, femoral vein distal not compressible, this may be due to some chronic DVT in the vein. IMPRESSION: Chronic DVT suspected. Correlate clinically.
[2018-01-18] MEDS ORDERED: APIXABAN 5 MG TAB PO STA (15:47)
[2018-01-18 16:22] VITALS: BP 137/71; PULSE 78; RESP 16; TEMP 97.8
== END 2018-01-18 16:21 ==
LOC: EC 13:32
DX: I82.402 Acute embolism and thrombosis of unspecified deep veins of left lower extremity (principal); K21.9 Gastro-esophageal reflux disease without esophagitis; M19.90 Unspecified osteoarthritis, unspecified site; F17.200 Nicotine dependence, unspecified, uncomplicated; Z96.642 Presence of left artificial hip joint; Z79.899 Other long term (current) drug therapy; Z88.6 Allergy status to analgesic agent
CPT/HCPCS: 99284

== ENCOUNTER → 2018-02-01 | Outpatient (CLI) | payer BC ==
--- NOTE | 2018-02-01 13:41 | US ---
EXAMINATION TYPE: US venous doppler duplex LE LT DATE OF EXAM: 02/01/2018 1:26 PM COMPARISON: January 18, 2018 CLINICAL HISTORY: I80.9 phlebitis [email or web address]. Known DVT progress study. SIDE PERFORMED: left TECHNIQUE: The lower extremity deep venous system is examined utilizing real time linear array sonog jeromy with graded compression, doppler sonography and color-flow sonography. VESSELS IMAGED: External Iliac Vein (EIV) Common Femoral Vein Deep Femoral Vein Greater Saphenous Vein * Femoral Vein Popliteal Vein Small Saphenous Vein * Proximal Calf Veins (* superficial vessels) Left Leg: strong rouleaux flow throughout fem vein, second tech confirmed no obvious DVT comparable to prior Grayscale, color doppler, spectral doppler imaging performed of the deep veins of the left lower ext remities. IMPRESSION: Improved vascular flow in the mid to distal left superficial femoral vein on current stud y. No residual or new acute DVT identified.
== END | disposition home or self-care (01) ==
LOC: RADUSWWP 12:43
PROVIDERS: ATTEND Orthopaedic Surgery
DX: M25.551 Pain in right hip (principal); M25.552 Pain in left hip; Z96.642 Presence of left artificial hip joint